=== PATIENT | female | born 1975 | race Caucasian/White ===

== ENCOUNTER 2023-07-28 08:21 | Outpatient (CLI) | payer OTHER, SELFPAY ==
--- NOTE | 2023-07-28 08:24 | MM_ITS ---
WS: [id number] VIEWS: MLO and CC views both breasts. 3D digital tomosynthesis is also included in this exam. Comparison made with prior exam of 04/17/2016, 09/21/2018 and 07/28/2023.. Findings: Stable appearing nodular densities in both breasts. No new suspicious finding. The breasts are hetero geneously dense which may obscure small masses. Impression: MM/[id number] BI-RADS: 2-Benign FOLLOW-UP: 1 Year Follow-up This mammogram was also analyzed by the Computer Aided Detection System R2 Imag e Digital Data Analyst.
== END 2023-07-28 08:22 | disposition home or self-care (01) ==
LOC: RAD 08:22
PROVIDERS: Family Provider Physician Assistant; PCP Physician Assistant; Visit Provider Physician Assistant
DX: Z12.31 Encounter for screening mammogram for malignant neoplasm of breast (principal)
CPT/HCPCS: 77063; 77067